=== PATIENT | male | born 1955 | race Caucasian/White ===

== ENCOUNTER 2018-03-20 18:28 | Observation (INO) | payer BC ==
[2018-03-20] MEDS ORDERED: Nitroglycerin 2% Ointment Foilpak UD TOP STA (19:53)
--- NOTE | 2018-03-20 20:18 | ED PDOC ---
HPI: Chest Pain Time Seen by Provider: 03/20/18 19:28 Chief Complaint (Nursing): Chest Pain Chief Complaint (Provider): Chest Pain History Per: Patient History/Exam Limitations: no limitations Onset/Duration Of Symptoms: Days (x3), Intermittent Episodes Current Symptoms Are (Timing): Still Present Additional Complaint(s): 63 y/o male with a PMHx of HTN, borderline DM, sleep apnea and dyslipidemia presents to the ED for evaluation of intermittent chest pain, onset three days ago. Patient was seen and evaluate at [facility] [place] and discharged home. Patient reports for the past two weeks, his blood pressure has been elevated despite taking routine medications. Patient reports of seeing PMD, Dr. Pérez who then referred the patient to the ED for further evaluation. Patient reports chest pain is associated with a mild headache. Otherwise, patient denies nausea, vomiting and diaphoresis. PMD: Dr. Pérez Past Medical History Reviewed: Historical Data, Nursing Documentation, Vital Signs Vital Signs: Last Vital Signs Temp 97.4 F L 03/20/18 18:43 Pulse 54 L 03/20/18 19:16 Resp 22 03/20/18 18:43 BP 167/75 H 03/20/18 18:43 Pulse Ox 100 03/20/18 18:43 - Medical History PMH: Asthma, Diabetes (borderline), HTN, Hypercholesterolemia Other PMH: Sleep apnea and dyslipidemia - Surgical History Surgical History: No Surg Hx - Family History Family History: States: Unknown Family Hx - Social History Current smoker - smoking cessation education provided: No Alcohol: None Drugs: Denies - Allergies Allergies/Adverse Reactions: Allergies Allergy/AdvReac Type Severity Reaction Status Date / Time No Known Allergies Allergy Verified 03/20/18 18:43 Review of Systems ROS Statement: Except As Marked, All Systems Reviewed And Found Negative Constitutional: Negative for: Sweats Cardiovascular: Positive for: Chest Pain Gastrointestinal: Negative for: Nausea, Vomiting Neurological: Positive for: Headache Physical Exam - Reviewed Nursing Documentation Reviewed: Yes Vital Signs Reviewed: Yes - Physical Exam Appears: Positive for: No Acute Distress (but obese) Head Exam: Positive for: ATRAUMATIC, NORMOCEPHALIC Skin: Positive for: Normal Color, Warm, Dry Eye Exam: Positive for: Normal appearance, EOMI, PERRL Neck: Positive for: Normal, Painless ROM Cardiovascular/Chest: Positive for: Regular Rate, Rhythm. Negative for: Murmur Respiratory: Positive for: Normal Breath Sounds. Negative for: Respiratory Distress Gastrointestinal/Abdominal: Positive for: Normal Exam, Soft. Negative for: Tenderness Extremity: Positive for: Normal ROM. Negative for: Deformity Neurologic/Psych: Positive for: Alert, Oriented. Negative for: Motor/Sensory Deficits - ECG O2 Sat by Pulse Oximetry: 100 (RA) Pulse Ox Interpretation: Normal Medical Decision Making Medical Decision Making: Time: 2017 Impression: 63 y/o male with chest pain and accelerated HTN. Plan: -- EKG -- BNP -- CMP -- Troponin I -- ED Urine Dipstick -- CBC with Differentials -- PTT -- Prothrombin time -- CXR Portable -- Nitro-Bid 2% Oint 2 ea TOP -- Heplock Insertion Scribe Attestation: Documented by Donavan Brewer, acting as a scribe for Surinder Juarez MD. Provider Scribe Attestation: All medical record entries made by the Scribe were at my direction and personally dictated by me. I have reviewed the chart and agree that the record accurately reflects my personal performance of the history, physical exam, medical decision making, and the department course for this patient. I have also personally directed, reviewed, and agree with the discharge instructions and disposition. Disposition - Disposition Condition: STABLE Forms: [facility] (Croatian)
[2018-03-20] MEDS ORDERED: Nitroglycerin 2% Ointment Foilpak UD TOP ONE ×2 (20:35→20:40)
[2018-03-20 20:49] LABS: ALB/GLOB RATIO 0.9 (1.0-2.1); ALBUMIN 4.1 g/dL (3.5-5.0)
[2018-03-20 21:00] LABS: PROTHROMBIN TIME 11.2 Seconds (9.8-13.1)
[2018-03-20 21:01] LABS: BASO # 0.1 K/uL (0.0-0.2); BASO % 0.8 % (0.0-2.0); EOS # 2.2 K/uL (0.0-0.7); EOS % 25.7 % (0.0-4.0); HEMOGLOBIN 14.7 g/dL (12.0-18.0); LYMPH # 1.8 K/uL (1.0-4.3); MEAN CELL VOLUME 84.9 fl (80.0-94.0); MEAN CORPUSCULAR HGB CONC 32.9 g/dL (33.0-37.0); MEAN PLATELET VOLUME 8.5 fl (7.2-11.7); MONO # 0.6 K/uL (0.0-0.8); MONO % 7.7 % (0.0-10.0); NEUT # 3.7 K/uL (1.8-7.0); NEUT % 43.8 % (50.0-75.0); NRBC % 0.2 % (0.0-0.0); PLATELET COUNT 298 K/uL (130-400); RBC 5.27 Mil/uL (4.40-5.90); WHITE BLOOD COUNT 8.4 K/uL (4.8-10.8)
[2018-03-20 21:02] LABS: PARTIAL THROMBOPLASTIN TIME 33.9 Seconds (25.6-37.1)
[2018-03-20 21:30] LABS: TROPONIN I 0.016 ng/mL (0.00-0.120)
[2018-03-20 22:36] LABS: BASOPHIL 1 % (0-2); EOSINOPHIL 22 % (0-7); HYPOCHROMIC SLIGHT; LARGE PLATELETS PRESENT; LYMPHOCYTE 21 % (20-50); MONOCYTE 4 % (0-10); NEUTROPHIL 52 % (42-75); PLATELET ESTIMATE NORMAL (NORMAL); TOTAL CELLS COUNTED 100
[2018-03-21] MEDS ORDERED: Pneumococcal 23-Valent Vaccine IM ONE (06:00)
[2018-03-21 06:07] LABS: HEMOGLOBIN 13.8 g/dL (12.0-18.0); MEAN CELL VOLUME 85.1 fl (80.0-94.0); MEAN CORPUSCULAR HEMOGLOBIN 27.5 pg (27.0-31.0); MEAN CORPUSCULAR HGB CONC 32.4 g/dL (33.0-37.0); RBC 5.02 Mil/uL (4.40-5.90); RED CELL DISTRIBUTION WIDTH 14.8 % (11.5-14.5); WHITE BLOOD COUNT 7.2 K/uL (4.8-10.8)
[2018-03-21 06:27] LABS: ALBUMIN 3.8 g/dL (3.5-5.0); ALT/SGPT 32 U/L (21-72); AST/SGOT 23 U/L (17-59); BLOOD UREA NITROGEN 21 mg/dl (9-20); GFR NON-AFRICAN AMERICAN 44
--- NOTE | 2018-03-21 07:42 | CP.PCM.HP ---
History of Present Illness - History of Present Illness History of Present Illness: 63 y/o male with a PMHx of HTN, prediabetes, sleep apnea and dyslipidemia presents to the ED c/o intermittent chest pain since 3 days ago. Patient reports for the past two weeks, his blood pressure has been elevated despite taking rout ine medications. Patient reports chest pain is associated with a mild headache. Otherwise he denies nausea, vomiting, abdominal pain, numbness and diaphoresis. He endorses [place] [facility] [place]. PMD: Dr. Pérez Present on Admission - Present on Admission Any Indicators Present on Admission: No Review of Systems - Review of Systems All systems: reviewed and no additional remarkable complaints except (HPI) Past Patient History - Past Medical History & Family History Past Medical History?: Yes - Past Social History Smoking Status: Never Smoked - CARDIAC Hx Cardiac Disorders: Yes Hx Angina: Yes Hx Hypercholesterolemia: Yes Hx Hypertension: Yes - PULMONARY Hx Respiratory Disorders: Yes Hx Sleep Apnea: Yes - NEUROLOGICAL Hx Neurological Disorder: No - HEENT Hx HEENT Problems: No - RENAL Hx Chronic Kidney Disease: No - ENDOCRINE/METABOLIC Hx Endocrine Disorders: Yes - HEMATOLOGICAL/ONCOLOGICAL Hx Blood Disorders: No Hx AIDS: No Hx Human Immunodeficiency Virus (HIV): No - INTEGUMENTARY Hx Dermatological Problems: No - MUSCULOSKELETAL/RHEUMATOLOGICAL Hx Musculoskeletal Disorders: No Hx Falls: No - GASTROINTESTINAL Hx Gastrointestinal Disorders: No Other/Comment: colonoscopy - GENITOURINARY/GYNECOLOGICAL Hx Genitourinary Disorders: No - PSYCHIATRIC Hx Psychophysiologic Disorder: No Hx Substance Use: No - SURGICAL HISTORY Hx Surgeries: No - ANESTHESIA Hx Anesthesia: Yes Hx Anesthesia Reactions: No Meds Allergies/Adverse Reactions: Allergies Allergy/AdvReac Type Severity Reaction Status Date / Time No Known Allergies Allergy Verified 03/20/18 18:43 Physical Exam - Constitutional Appears: No Acute Distress - Head Exam Head Exam: NORMAL INSPECTION - Respiratory Exam Respiratory Exam: Clear to Auscultation Bilateral, NORMAL BREATHING PATTERN - Cardiovascular Exam Cardiovascular Exam: REGULAR RHYTHM. absent: Tachycardia - GI/Abdominal Exam GI & Abdominal Exam: Normal Bowel Sounds, Soft. absent: Distended, Tenderness - Extremities Exam Extremities exam: Negative for: pedal edema - Neurological Exam Neurological exam: Alert, CN II-XII Intact, Oriented x3 - Skin Skin Exam: Dry, Warm Results - Vital Signs Recent Vital Signs: Last Vital Signs Temp 97.6 F 03/21/18 05:13 Pulse 57 L 03/21/18 05:13 Resp 16 03/21/18 05:13 BP 160/74 H 03/21/18 05:13 Pulse Ox 98 03/21/18 05:13 - Labs Result Diagrams: 03/21/18 04:05 03/21/18 04:05 Labs: Laboratory Results - last 24 hr 03/20/18 03/20/18 03/20/18 20:23 20:23 20:23 WBC 8.4 RBC 5.27 Hgb 14.7 Hct 44.7 MCV 84.9 MCH 28.0 MCHC 32.9 L RDW 15.0 H Plt Count 298 MPV 8.5 Neut % (Auto) 43.8 L Lymph % (Auto) 22.0 [place] % (Auto) 7.7 Eos % (Auto) 25.7 H Baso % (Auto) 0.8 Neut # (Auto) 3.7 Lymph # (Auto) 1.8 [place] # (Auto) 0.6 Eos # (Auto) 2.2 H Baso # (Auto) 0.1 Neutrophils % (Manual) 52 Lymphocytes % (Manual) 21 Monocytes % (Manual) 4 Eosinophils % (Manual) 22 H Basophils % (Manual) 1 Platelet Estimate Normal Large Platelets Present Hypochromasia (manual) Slight PT 11.2 INR 1.0 APTT 33.9 Sodium 139 Potassium 4.3 Chloride 110 H Carbon Dioxide 21 L Anion Gap 12 BUN 19 Creatinine 1.5 Est GFR ( Amer) 57 Est GFR (Non-Af Amer) 47 Random Glucose 109 Calcium 9.0 Total Bilirubin 0.7 AST 32 ALT 29 Alkaline Phosphatase 92 Troponin I 0.0160 NT-Pro-B Natriuret Pep 519 Total Protein 8.6 H Albumin 4.1 Globulin 4.5 H Albumin/Globulin Ratio 0.9 L 03/21/18 03/21/18 04:05 04:05 WBC 7.2 RBC 5.02 Hgb 13.8 Hct 42.7 MCV 85.1 MCH 27.5 MCHC 32.4 L RDW 14.8 H Plt Count 261 MPV Neut % (Auto) Lymph % (Auto) [place] % (Auto) Eos % (Auto) Baso % (Auto) Neut # (Auto) Lymph # (Auto) [place] # (Auto) Eos # (Auto) Baso # (Auto) Neutrophils % (Manual) Lymphocytes % (Manual) Monocytes % (Manual) Eosinophils % (Manual) Basophils % (Manual) Platelet Estimate Large Platelets Hypochromasia (manual) PT INR APTT Sodium 141 Potassium 3.9 Chloride 111 H Carbon Dioxide 24 Anion Gap 10 BUN 21 H Creatinine 1.6 H Est GFR ( Amer) 53 Est GFR (Non-Af Amer) 44 Random Glucose 116 H Calcium 9.0 Total Bilirubin 0.2 AST 23 ALT 32 Alkaline Phosphatase 82 Troponin I < 0.0120 NT-Pro-B Natriuret Pep Total Protein 7.5 Albumin 3.8 Globulin 3.8 Albumin/Globulin Ratio 1.0 Assessment & Plan - Assessment and Plan (Free Text) Assessment: 63 yo male with HTN admitted due to chest pain and elevated blood pressure Plan: VSS troponin x2 negative EKG aminata, T wave inversions in inferolateral leads BP still in the high side on lopressor, norvas and coejar Cardio consulted for cath today per Dr Beach Home meds resumed rest of plan as ordered Case seen and examined with Dr Pérez
[2018-03-21 07:58] VITALS: PULSE 53; RESP 18
[2018-03-21] MEDS ORDERED: TELMISARTAN 80 MG PO SCH (09:00)
[2018-03-21] MEDS ORDERED: NEBIVOLOL 20 MG PO SCH (09:00)
[2018-03-21] MEDS: Acetylcysteine 20% Inhal Soln (4ml) PO SCH ×2 (09:08→16:58)
[2018-03-21 12:02] VITALS: BP 172/76; TEMP 97.3; O2SAT 99
--- NOTE | 2018-03-21 13:34 | RAD ---
Date of service: 03/20/2018 HISTORY: chest pain COMPARISON: No prior. FINDINGS: LUNGS: No active pulmonary disease. PLEURA: No significant pleural effusion identified, no pneumothorax apparent. CARDIOVASCULAR: No aortic atherosclerotic calcification present. Normal cardiac size. No pulmonary vascular congestion. OSSEOUS STRUCTURES: No significant abnormalities. VISUALIZED UPPER ABDOMEN: Normal. OTHER FINDINGS: None. IMPRESSION: No active disease.
--- NOTE | 2018-03-21 13:56 | CARD ---
APPROVED REPORT Date of service: 03/20/2018 EKG Measurement Heart [id number] <Conclusion> Sinus bradycardia ST & T wave abnormality, consider inferolateral ischemia Abnormal ECG
--- NOTE | 2018-03-21 14:52 | CARD ---
APPROVED REPORT Date of service: 03/21/2018 EKG Measurement Heart [id number] VA 170P44 [id number] <Conclusion> Sinus bradycardia ST & Marked T wave abnormality, consider inferolateral ischemia Abnormal ECG
--- NOTE | 2018-03-21 17:38 | CP.PCM.CON ---
Past Patient History - Past Medical History & Family History Past Medical History?: Yes - Past Social History Smoking Status: Never Smoked - CARDIAC Hx Cardiac Disorders: Yes Hx Angina: Yes Hx Hypercholesterolemia: Yes Hx Hypertension: Yes - PULMONARY Hx Respiratory Disorders: Yes Hx Sleep Apnea: Yes - NEUROLOGICAL Hx Neurological Disorder: No - HEENT Hx HEENT Problems: No - RENAL Hx Chronic Kidney Disease: No - ENDOCRINE/METABOLIC Hx Endocrine Disorders: Yes - HEMATOLOGICAL/ONCOLOGICAL Hx Blood Disorders: No Hx AIDS: No Hx Human Immunodeficiency Virus (HIV): No - INTEGUMENTARY Hx Dermatological Problems: No - MUSCULOSKELETAL/RHEUMATOLOGICAL Hx Musculoskeletal Disorders: No Hx Falls: No - GASTROINTESTINAL Hx Gastrointestinal Disorders: No Other/Comment: colonoscopy - GENITOURINARY/GYNECOLOGICAL Hx Genitourinary Disorders: No - PSYCHIATRIC Hx Psychophysiologic Disorder: No Hx Substance Use: No - SURGICAL HISTORY Hx Surgeries: No - ANESTHESIA Hx Anesthesia: Yes Hx Anesthesia Reactions: No Meds Allergies/Adverse Reactions: Allergies Allergy/AdvReac Type Severity Reaction Status Date / Time No Known Allergies Allergy Verified 03/20/18 18:43 - Medications Medications: Current Medications Acetylcysteine (Acetylcysteine 20%) 3 ml PO BID [facility] Stop: 03/22/18 17:01 Last Admin: 03/21/18 16:58 Dose: Not Given Amlodipine Besylate (Norvasc) 5 mg PO DAILY [facility] Last Admin: 03/21/18 09:16 Dose: 5 mg Aspirin (Ecotrin) 81 mg PO DAILY [facility] Last Admin: 03/21/18 09:01 Dose: 81 mg Dextrose/Sodium Chloride (Dextrose 5%-0.45% Ns 500 Ml) 500 mls @ 60 mls/hr IV .Q8H20M [facility] Stop: 03/22/18 08:34 Last Admin: 03/21/18 16:58 Dose: Not Given Losartan Potassium (Cozaar) 100 mg PO DAILY [facility] Last Admin: 03/21/18 09:00 Dose: 100 mg Metoprolol Tartrate (Lopressor) 100 mg PO Q12 [facility] Last Admin: 03/21/18 09:15 Dose: Not Given Results - Vital Signs Recent Vital Signs: Last Vital Signs Temp 97.3 F L 03/21/18 12:01 Pulse 53 L 03/21/18 12:01 Resp 18 03/21/18 12:01 BP 172/76 H 03/21/18 12:01 Pulse Ox 99 03/21/18 12:01 - Labs Result Diagrams: 03/21/18 04:05 03/21/18 04:05 Labs: Laboratory Results - last 24 hr 03/20/18 03/20/18 03/20/18 20:23 20:23 20:23 WBC 8.4 RBC 5.27 Hgb 14.7 Hct 44.7 MCV 84.9 MCH 28.0 MCHC 32.9 L RDW 15.0 H Plt Count 298 MPV 8.5 Neut % (Auto) 43.8 L Lymph % (Auto) 22.0 [place] % (Auto) 7.7 Eos % (Auto) 25.7 H Baso % (Auto) 0.8 Neut # (Auto) 3.7 Lymph # (Auto) 1.8 [place] # (Auto) 0.6 Eos # (Auto) 2.2 H Baso # (Auto) 0.1 Neutrophils % (Manual) 52 Lymphocytes % (Manual) 21 Monocytes % (Manual) 4 Eosinophils % (Manual) 22 H Basophils % (Manual) 1 Platelet Estimate Normal Large Platelets Present Hypochromasia (manual) Slight PT 11.2 INR 1.0 APTT 33.9 Sodium 139 Potassium 4.3 Chloride 110 H Carbon Dioxide 21 L Anion Gap 12 BUN 19 Creatinine 1.5 Est GFR ( Amer) 57 Est GFR (Non-Af Amer) 47 Random Glucose 109 Calcium 9.0 Total Bilirubin 0.7 AST 32 ALT 29 Alkaline Phosphatase 92 Troponin I 0.0160 NT-Pro-B Natriuret Pep 519 Total Protein 8.6 H Albumin 4.1 Globulin 4.5 H Albumin/Globulin Ratio 0.9 L 03/21/18 03/21/18 03/21/18 04:05 04:05 11:33 WBC 7.2 RBC 5.02 Hgb 13.8 Hct 42.7 MCV 85.1 MCH 27.5 MCHC 32.4 L RDW 14.8 H Plt Count 261 MPV Neut % (Auto) Lymph % (Auto) [place] % (Auto) Eos % (Auto) Baso % (Auto) Neut # (Auto) Lymph # (Auto) [place] # (Auto) Eos # (Auto) Baso # (Auto) Neutrophils % (Manual) Lymphocytes % (Manual) Monocytes % (Manual) Eosinophils % (Manual) Basophils % (Manual) Platelet Estimate Large Platelets Hypochromasia (manual) PT INR APTT Sodium 141 Potassium 3.9 Chloride 111 H Carbon Dioxide 24 Anion Gap 10 BUN 21 H Creatinine 1.6 H Est GFR ( Amer) 53 Est GFR (Non-Af Amer) 44 Random Glucose 116 H Calcium 9.0 Total Bilirubin 0.2 AST 23 ALT 32 Alkaline Phosphatase 82 Troponin I < 0.0120 < 0.0120 NT-Pro-B Natriuret Pep Total Protein 7.5 Albumin 3.8 Globulin 3.8 Albumin/Globulin Ratio 1.0
== END 2018-03-21 12:30 | disposition short-term general hospital (02) ==
LOC: H.ER 18:28 → H.ERHOLD 20:43 → H.TEL 21:49
PROVIDERS: ADMIT Family Medicine; ATTEND Family Medicine
DX: R07.9 Chest pain, unspecified (principal); I10 Essential (primary) hypertension; E78.5 Hyperlipidemia, unspecified; G47.30 Sleep apnea, unspecified; J45.909 Unspecified asthma, uncomplicated; E78.00 Pure hypercholesterolemia, unspecified; R73.03 Prediabetes; R51 Headache; Z23 Encounter for immunization
CPT/HCPCS: 36415; 71045; 80053; 83880; 84484; 85025; 85027; 85610; 85730; 90732; 93005; 99285; G0009; G0378